=== PATIENT | male | born 1960 | race African-American/Black ===

== ENCOUNTER 2018-01-01 23:11 | Emergency (ER) | payer OTHER ==
[2018-01-01 23:17] VITALS: BP 130/83
== END 2018-01-02 00:27 | disposition home or self-care (01) ==
LOC: ED 23:34
DX: Z00.00 Encounter for general adult medical examination without abnormal findings (principal)
CPT/HCPCS: 36415; 86705; 86706; 86803; 87340; 87806; 99284; G0475

== ENCOUNTER 2020-06-06 16:36 | Emergency (ER) | payer MEDICAID ==
[~2020-06-06] VITALS: Ht 177.8 cm; Wt 66.0 kg
[2020-06-06 16:47] VITALS: BP 118/82
--- NOTE | 2020-06-06 16:51 | NUR ---
PT IN FROM [facility] FOR BEING PLACED ON HOLD, NOT BEING ABLE TO CARE FOR SELF. WAS ACTING IMPULSIVE IN [facility], SCREAMING, DELUSIONAL. PT WAS IN [facility] FOR 2 MONTHS. PT SPEECH PRESSURED, WILL RANDOMLY TALKING IN HUNGARIAN. PT COOPERATIVE AT THIS TIME. IN GOWN, [facility] CUFFS REMOVED. PHOTOGRAPHIC EQUIPMENT TECHNICIAN AT BEDSIDE.
[2020-06-06 17:16] LABS: BASOPHILS % (AUTO) 0 % (0-1); EOSINOPHILS # (AUTO) 0.02 x10^3/uL (0-0.4); EOSINOPHILS % (AUTO) 0 % (1-7); LYMPHOCYTES # (AUTO) 0.82 x10^3/uL (1-3.4); LYMPHOCYTES % (AUTO) 14 % (22-44); MD NO; MEAN CORPUSCULAR HEMOGLOBIN 30.2 pg (27.5-34.5); MEAN CORPUSCULAR HGB CONC 32.4 g/dL (33.2-36.2); MEAN CORPUSCULAR VOLUME 93.4 fL (81-97); MEAN PLATELET VOLUME 7.1 fL (7.4-10.4); MONOCYTES # (AUTO) 0.27 x10^3/uL (0.2-0.8); MONOCYTES % (AUTO) 4 % (2-9); NEUTROPHILS # (AUTO) 4.99 x10^3/uL (1.8-6.8); NEUTROPHILS % (AUTO) 82 % (42-75); PLATELET COUNT 293 x10^3/uL (130-400); RED BLOOD COUNT 3.67 x10^6/uL (4.38-5.82)
[2020-06-06 17:24] LABS: ALANINE AMINOTRANSFERASE 21 U/L (12-78); ALBUMIN 3.3 g/dL (3.4-5.0); ANION GAP 7 mmol/L (5-15); CALCIUM 8.7 mg/dL (8.5-10.1); CHLORIDE 106 mmol/L (98-107)
[2020-06-06 17:27] LABS: ALKALINE PHOSPHATASE 78 U/L (45-117); BILIRUBIN,TOTAL 0.7 mg/dL (0.2-1.0); CREATININE 1.04 mg/dL (0.7-1.3); TOTAL PROTEIN 6.8 g/dL (6.4-8.2)
--- NOTE | 2020-06-06 17:30 | NUR ---
PT GIVEN MEAL TRAY.
[2020-06-06 17:35] LABS: SALICYLATE LEVEL < 1.7 mg/dL (2.8-20.0)
--- NOTE | 2020-06-06 18:25 | NUR ---
Patient/Caregiver given discharge instructions and they have confirmed that they understand the instructions. Patient ambulatory with steady gait.
--- NOTE | 2020-06-06 18:25 | NUR ---
ALL BELONGINGS RETURNED TO PT
== END 2020-06-06 18:27 ==
LOC: ED 18:21
DX: M25.531 Pain in right wrist (principal); M25.521 Pain in right elbow
CPT/HCPCS: 36415; 80053; 80307; 85025; 99283

== ENCOUNTER 2020-06-06 22:15 | Emergency (ER) | payer MEDICAID | END 2020-06-06 22:25 | LOC: ED 22:19 | DX: M79.606 Pain in leg, unspecified (principal); Z53.21 Procedure and treatment not carried out due to patient leaving prior to being seen by health care provider ==

== ENCOUNTER 2020-06-10 22:30 | Emergency (ER) | payer MEDICAID ==
[~2020-06-10] VITALS: Ht 180.3 cm; Wt 52.0 kg
--- NOTE | 2020-06-10 23:39 | NUR ---
PATIENT RESTING IN BED, NO S/S OF DISTRESS PT TALKING ABOUT HISTORY AND LAUGHING. PLACED ON CONTINUOUS PULSE OX.
[2020-06-11 00:10] VITALS: BP 102/65
--- NOTE | 2020-06-11 00:20 | NUR ---
LEGAL HOLD DE-CERTIFIED BY ER MD. PATIENT TAKEN TO RESTROOM PRIOR TO DISCHARGE, PATIENT STATES NO ISSUES AT THIS TIME
== END 2020-06-11 00:32 | disposition home or self-care (01) ==
LOC: ED 22:40
DX: R63.3 Feeding difficulties (principal); Z72.9 Problem related to lifestyle, unspecified; F17.210 Nicotine dependence, cigarettes, uncomplicated
CPT/HCPCS: 99283; 99406

== ENCOUNTER 2020-06-12 20:01 | Inpatient (IN) | payer MEDICAID ==
[~2020-06-12] VITALS: Ht 177.8 cm; Wt 54.9 kg
[2020-06-12] MEDS ORDERED: IBUPROFEN 600 MG TABLET ONE (20:29)
[2020-06-12] MEDS ORDERED: ACETAMINOPHEN 325 MG TABLET ONE (20:29)
[2020-06-12] MEDS ORDERED: IBUPROFEN 200 MG TABLET PO ONE (20:30)
[2020-06-12] MEDS ORDERED: ACETAMINOPHEN 325 MG TABLET PO ONE (20:30)
[2020-06-12 20:58] LABS: MEAN CORPUSCULAR HEMOGLOBIN 30.2 pg (27.5-34.5); MEAN CORPUSCULAR HGB CONC 32.5 g/dL (33.2-36.2); MEAN CORPUSCULAR VOLUME 93.2 fL (81-97); PLATELET COUNT 254 x10^3/uL (130-400); RED BLOOD COUNT 2.59 x10^6/uL (4.38-5.82); RED CELL DISTRIBUTION WIDTH 14.4 % (9.4-14.8)
[2020-06-12 21:01] LABS: ALANINE AMINOTRANSFERASE 32 U/L (12-78); ALBUMIN 2.9 g/dL (3.4-5.0); ANION GAP 4 mmol/L (5-15); CALCIUM 8.5 mg/dL (8.5-10.1); CHLORIDE 114 mmol/L (98-107); CREATININE 0.73 mg/dL (0.7-1.3)
[2020-06-12 21:03] LABS: ALKALINE PHOSPHATASE 57 U/L (45-117); BILIRUBIN,TOTAL 0.5 mg/dL (0.2-1.0); TOTAL PROTEIN 5.7 g/dL (6.4-8.2)
[2020-06-12 21:38] LABS: MD YES
[2020-06-12 21:39] LABS: ANISOCYTOSIS 1+; LYMPH#(MANUAL) 2.02 x10^3/uL (1-3.4); LYMPHS% (MANUAL) 47 % (22-44); MONOS#(MANUAL) 0.09 x10^3/uL (0.3-2.7); MONOS% (MANUAL) 2 % (2-9); SEG#(MANUAL) 2.19 x10^3/uL (1.8-6.8); SEGS% (MANUAL) 51 % (42-75)
[2020-06-12 21:40] LABS: HYPOCHROMIA 1+; OVALOCYTES 1+; POLYCHROMASIA 1+
--- NOTE | 2020-06-12 21:40 | NUR ---
PT RESTING IN BED, PT ON MONITOR, PT DENIED ANY NEEDS AT THIS TIME, DAIRY CATTLE FARMER WILL CONTINUE TO MONITOR PT.
[2020-06-12 21:42] LABS: <PLATELET ESTIMATE> ADEQUATE; <PLT MORPHOLOGY> NORMAL PLT MORPH
--- NOTE | 2020-06-12 22:43 | NUR ---
PT RESTING IN BED, PT ON MONITOR, PT DENIED ANY NEEDS AT THIS TIME, PACKAGE LINER WILL CONTINUE TO MONITOR PT.
[2020-06-12] MEDS ORDERED: PANTOPRAZOLE 40 MG IV IVPush STA (22:49)
[2020-06-12] MEDS ORDERED: PANTOPRAZOLE 40 MG IV ONE (23:09)
[2020-06-12] MEDS: PANTOPRAZOLE 80 MG in SODIUM CHLORIDE 0.9% 100 ML IV SCH (23:32)
--- NOTE | 2020-06-12 23:49 | NUR ---
PT DENIED HOME MEDICATIONS
--- NOTE | 2020-06-12 23:50 | NUR ---
MEDICATION REQUESTED FROM [employer] "THEY ARE WORKING ON IT AND WILL SEND IT"
--- NOTE | 2020-06-13 00:31 | NUR ---
BANANA BAG AND PROTONIX BAG ARRIVED DURING PT TRANSFER TO FLOOR, MEDS SENT TO FLOOR WITH PT
[2020-06-13 01:21] VITALS: BP 100/58
[2020-06-13] MEDS: POTASSIUM CHLORIDE 20 MEQ, MAGNESIUM SULFATE 1 GM, FOLIC ACID 1 MG, THIAMINE 200 MG, MV... IV SCH (01:48)
[2020-06-13 02:47] VITALS: BP 100/58
[2020-06-13 07:27] VITALS: BP 110/63
[2020-06-13] MEDS: PANTOPRAZOLE 80 MG in SODIUM CHLORIDE 0.9% 100 ML IV SCH ×2 (11:58→22:50)
[2020-06-13 12:32] LABS: IRON LEVEL 44 mcg/dL (65-175)
[2020-06-13 12:50] VITALS: BP 136/75
[2020-06-13 12:59] LABS: % IRON SATURATION 24 % (20-55); TOTAL IRON BINDING CAPACITY 181 mcg/dL (250-450)
[2020-06-13] MEDS ORDERED: GOLYTELY 4,000ML ORAL.SOL PO ONE (17:00)
[2020-06-13 18:42] VITALS: BP 104/69
[2020-06-14] MEDS: POTASSIUM CHLORIDE 20 MEQ, MAGNESIUM SULFATE 1 GM, FOLIC ACID 1 MG, THIAMINE 200 MG, MV... IV SCH (00:20)
[2020-06-14 01:28] VITALS: BP 106/67
[2020-06-14 06:07] LABS: CHLORIDE 109 mmol/L (98-107)
[2020-06-14 06:14] LABS: MEAN CORPUSCULAR HEMOGLOBIN 30.4 pg (27.5-34.5); MEAN CORPUSCULAR HGB CONC 32.5 g/dL (33.2-36.2); MEAN CORPUSCULAR VOLUME 93.4 fL (81-97); MEAN PLATELET VOLUME 7.2 fL (7.4-10.4); PLATELET COUNT 226 x10^3/uL (130-400); RED BLOOD COUNT 2.15 x10^6/uL (4.38-5.82); RED CELL DISTRIBUTION WIDTH 14.9 % (9.4-14.8)
[2020-06-14 06:15] LABS: ALANINE AMINOTRANSFERASE 23 U/L (12-78); ALBUMIN 2.6 g/dL (3.4-5.0); ALKALINE PHOSPHATASE 49 U/L (45-117); ANION GAP 6 mmol/L (5-15); BILIRUBIN,TOTAL 0.8 mg/dL (0.2-1.0); CALCIUM 8.2 mg/dL (8.5-10.1); TOTAL PROTEIN 5.2 g/dL (6.4-8.2)
[2020-06-14 06:36] VITALS: BP 106/55
[2020-06-14 07:01] LABS: BASOPHILS # (AUTO) 0.02 x10^3/uL (0-0.1); BASOPHILS % (AUTO) 1 % (0-1); EOSINOPHILS # (AUTO) 0.08 x10^3/uL (0-0.4); EOSINOPHILS % (AUTO) 2 % (1-7); LYMPHOCYTES # (AUTO) 1.31 x10^3/uL (1-3.4); LYMPHOCYTES % (AUTO) 38 % (22-44); MD SCAN; MONOCYTES # (AUTO) 0.24 x10^3/uL (0.2-0.8); MONOCYTES % (AUTO) 7 % (2-9); NEUTROPHILS # (AUTO) 1.76 x10^3/uL (1.8-6.8); NEUTROPHILS % (AUTO) 52 % (42-75)
[2020-06-14] MEDS: PANTOPRAZOLE 80 MG in SODIUM CHLORIDE 0.9% 100 ML IV SCH ×2 (08:23→18:12)
[2020-06-14] MEDS ORDERED: GOLYTELY 4,000ML ORAL.SOL PO ONE (09:00)
[2020-06-14] MEDS ORDERED: PROPOFOL 50 ML ONE (11:48)
[2020-06-14 18:51] VITALS: BP 102/61
[2020-06-15 00:33] VITALS: BP 110/71
[2020-06-15] MEDS: POTASSIUM CHLORIDE 20 MEQ, MAGNESIUM SULFATE 1 GM, FOLIC ACID 1 MG, THIAMINE 200 MG, MV... IV SCH (00:56)
[2020-06-15] MEDS: PANTOPRAZOLE 80 MG in SODIUM CHLORIDE 0.9% 100 ML IV SCH ×2 (05:29→14:00)
[2020-06-15 08:18] VITALS: BP 127/72
[2020-06-15] MEDS ORDERED: ACETAMINOPHEN 325 MG TABLET PO PRN (11:30)
[2020-06-15] MEDS ORDERED: ACETAMINOPHEN 325 MG TABLET ONE (11:30)
[2020-06-15 12:36] VITALS: BP 104/65
[2020-06-15 19:06] VITALS: BP 100/52
[2020-06-16] MEDS: PANTOPRAZOLE 80 MG in SODIUM CHLORIDE 0.9% 100 ML IV SCH ×3 (00:21→20:00)
[2020-06-16 00:50] VITALS: BP 101/67
[2020-06-16 07:44] VITALS: BP 93/60
[2020-06-16 12:32] VITALS: BP 92/54
[2020-06-16] MEDS: SODIUM CHLORIDE 0.9% 1,000 ML IV SCH ×2 (13:30→21:30)
[2020-06-16 19:14] VITALS: BP 94/58
[2020-06-17 01:50] VITALS: BP 106/65
[2020-06-17] MEDS: SODIUM CHLORIDE 0.9% 1,000 ML IV SCH ×3 (05:30→20:17)
[2020-06-17] MEDS: PANTOPRAZOLE 80 MG in SODIUM CHLORIDE 0.9% 100 ML IV SCH ×2 (06:00→16:00)
[2020-06-17 06:47] VITALS: BP 120/65
[2020-06-17 12:17] VITALS: BP 91/58
[2020-06-17 19:30] VITALS: BP 94/49
[2020-06-18 00:13] VITALS: BP 93/50
[2020-06-18] MEDS: PANTOPRAZOLE 80 MG in SODIUM CHLORIDE 0.9% 100 ML IV SCH ×3 (02:00→22:00)
[2020-06-18] MEDS: SODIUM CHLORIDE 0.9% 1,000 ML IV SCH ×3 (03:55→21:30)
[2020-06-18 07:23] VITALS: BP 103/51
[2020-06-18 12:08] VITALS: BP 104/57
[2020-06-18 18:50] VITALS: BP 96/43
[2020-06-19 00:28] VITALS: BP 100/58
[2020-06-19] MEDS: SODIUM CHLORIDE 0.9% 1,000 ML IV SCH (05:30)
[2020-06-19] MEDS: PANTOPRAZOLE 80 MG in SODIUM CHLORIDE 0.9% 100 ML IV SCH (08:00)
[2020-06-19] MEDS ORDERED: HALOPERIDOL 5 MG/ML ONE (10:26)
[2020-06-19] MEDS ORDERED: HALOPERIDOL 5 MG/ML IM PRN (10:30)
[2020-06-19] MEDS ORDERED: HALOPERIDOL 5 MG/ML IM ONE (12:00)
[2020-06-19] MEDS ORDERED: DIPHENHYDRAMINE 50 MG/ML, 1ML IM PRN (12:00)
== END 2020-06-19 13:05 | DRG 377 ==
LOC: ED 21:11 → EDIP 23:48 → 4WST 06-13 01:04
PROVIDERS: ADMIT Family Medicine; ATTEND Internal Medicine
DX: K92.2 Gastrointestinal hemorrhage, unspecified (principal); E43 Unspecified severe protein-calorie malnutrition; D62 Acute posthemorrhagic anemia; Z68.1 Body mass index [BMI] 19.9 or less, adult; F17.200 Nicotine dependence, unspecified, uncomplicated; F31.9 Bipolar disorder, unspecified; M53.3 Sacrococcygeal disorders, not elsewhere classified; Z53.20 Procedure and treatment not carried out because of patient's decision for unspecified reasons; I95.9 Hypotension, unspecified; Z20.828 Contact with and (suspected) exposure to other viral communicable diseases; Z53.29 Procedure and treatment not carried out because of patient's decision for other reasons; Z91.14 Patient's other noncompliance with medication regimen
CPT/HCPCS: 36415; 72190; 73080; 96374; 99285; J7121; 80053; 82607; 82728; 83540; 83550; 85014; 85018; 85025; 85347; 85384; 85576; 86850; 86900; 86923; 87635; G0378; J2704; J3411; J3475; J3480; C9113; J1630

== ENCOUNTER 2020-07-15 16:42 | Emergency (ER) | payer MEDICAID ==
[~2020-07-15] VITALS: Ht 177.8 cm; Wt 55.0 kg
--- NOTE | 2020-07-15 17:14 | NUR ---
BIB LAW ENFORCEMENT. LEGAL HOLD FROM ALF D/T PSYCH. DENIES SI/HI. DELUSIONS, HALLCINATIONS, REFUSED TO TAKE MEDS AT ALF. PT'S AOX4. RESPS EVEN AND UNLABORED. 2 POINTS RESTRAINTS APPLIED BY SECURITY AT THIS TIME. BELONGINGS PUT INTO ONE BAG AND PUT INTO THE LOCKER. SITTER OUTSIDE. ROOM SECURE.
--- NOTE | 2020-07-15 17:29 | NUR ---
pt refused to provide urine sample at this time.
[2020-07-15] MEDS ORDERED: ZIPRASIDONE 20 MG INJ IM ONE ×5 (17:30→22:30)
[2020-07-15 17:50] LABS: CHLORIDE 107 mmol/L (98-107)
[2020-07-15 17:54] LABS: BASOPHILS % (AUTO) 0 % (0-1); EOSINOPHILS % (AUTO) 1 % (1-7); LYMPHOCYTES % (AUTO) 24 % (22-44); MEAN CORPUSCULAR HEMOGLOBIN 28.5 pg (27.5-34.5); MEAN CORPUSCULAR HGB CONC 31.1 g/dL (33.2-36.2); MEAN PLATELET VOLUME 6.5 fL (7.4-10.4); MONOCYTES % (AUTO) 9 % (2-9); NEUTROPHILS % (AUTO) 66 % (42-75); PLATELET COUNT 371 x10^3/uL (130-400); RED BLOOD COUNT 2.76 x10^6/uL (4.38-5.82); RED CELL DISTRIBUTION WIDTH 18.6 % (9.4-14.8)
[2020-07-15 17:57] LABS: ALANINE AMINOTRANSFERASE 23 U/L (12-78); ALKALINE PHOSPHATASE 85 U/L (45-117); ANION GAP 7 mmol/L (5-15); BILIRUBIN,TOTAL 0.5 mg/dL (0.2-1.0); CALCIUM 8.6 mg/dL (8.5-10.1); CREATININE 0.79 mg/dL (0.7-1.3); TOTAL PROTEIN 6.7 g/dL (6.4-8.2)
[2020-07-15 17:58] LABS: SALICYLATE LEVEL < 1.7 mg/dL (2.8-20.0)
--- NOTE | 2020-07-15 18:28 | NUR ---
diet tray provided at this time.
--- NOTE | 2020-07-15 19:12 | NUR ---
Luís holliday in [facility] - 07/15/20 at 1913 by MARYSE report received from michael clarke
--- NOTE | 2020-07-15 19:13 | NUR ---
report given to michael hearn.
--- NOTE | 2020-07-15 19:13 | NUR ---
REPORT FROM ARGENIS GARRETT. PT IN 2 POINT HARD RESTRAINTS AT THIS TIME WHEN THIS RN ASSUMED CARE. PT MAKING AGGRESSIVE GESTURES TO THIS RN.
[2020-07-15 19:40] LABS: MD MORPH REVIEW ONLY
[2020-07-15 19:49] LABS: HYPOCHROMIA 1+; POLYCHROMASIA 1+
[2020-07-15 19:50] LABS: OVALOCYTES 1+
[2020-07-15 19:51] LABS: <PLATELET ESTIMATE> ADEQUATE; <PLT MORPHOLOGY> NORMAL PLT MORPH; TARGET CELLS 1+; TEAR DROPS 1+
--- NOTE | 2020-07-15 20:24 | NUR ---
PT REMAINS IN 2 POINT RESTRAINTS.
--- NOTE | 2020-07-15 20:24 | NUR ---
PT YELLING ANYTIME THIS RN TRIES TO CONVERSE WITH PT "F YOU, B. YOU MAGGIE PAUL B"
[2020-07-15 20:37] LABS: AMPHETAMINE SCREEN, URINE Negative (Negative); BARBITURATE SCREEN, URINE Negative (Negative); BENZODIAZEPINE SCREEN, URINE Negative (Negative); CANNABINOID SCREEN, URINE Negative (Negative); COCAINE SCREEN, URINE Negative (Negative); METHADONE SCREEN, URINE Negative (Negative); OPIATE SCREEN, URINE Negative (Negative)
--- NOTE | 2020-07-15 22:00 | NUR ---
PT REFUSED TEMPERATURE CHECK, ALL OTHER VITALS OBTAINED AND ENTERED.
[2020-07-15] MEDS ORDERED: LORazepam 2 MG/ML, 1ML ONE (22:18)
[2020-07-15] MEDS ORDERED: LORazepam 2 MG/ML, 1ML IM ONE (22:30)
--- NOTE | 2020-07-15 23:15 | NUR ---
LATE ENTRY: RESTRAINTS D/C'D AT THIS TIME. BETWEEN 2019 AND TIME OF THIS NOTE PT REMAINED EXTREMELY AGITATED. PT WAS YELLING AT PASSERS BY, CUSSING AND WOULD NOT LISTEN WHEN THIS RN OR OTHERS TRIED TO TALK WITH HIM OR EDUCATE HIM. RESTRAINTS D/C'D AT EARLIEST TIME POSSIBLE.
--- NOTE | 2020-07-15 23:46 | NUR ---
Break RN: patient sleeping. respiration unlabored.
--- NOTE | 2020-07-16 01:03 | NUR ---
PT HAS REMAINED SLEEPING SINCE TIME OF RESTRAINTS D/C'D.
--- NOTE | 2020-07-16 03:59 | NUR ---
REPORT TO ARGENIS GONZALEZ. LISA TO ASSUME FULL CARE OF PT AT THIS TIME. PT IN BED, NADN. PT IN VIEW OF THE SITTER.
--- NOTE | 2020-07-16 05:09 | NUR ---
PT RESTING IN BED, PT ROOM SI SECURE WITH SITTER AT PT DOOR. PT HAS NO WANTS OR NEEDS AT THIS TIME, RN WILL CONINUE TO MONITOR PT. PT MEDICATED PER EMAR
--- NOTE | 2020-07-16 07:00 | NUR ---
REPORT RECEIVED FROM ARGENIS GONZALEZ. ASSUMING CARE OF PATIENT. PT IS SLEEPING AT THIS TIME AND REMAINS UNDER CONSTANT SUPERVISION OF VAELRIY AND REMAINS SAFE.
--- NOTE | 2020-07-16 09:33 | NUR ---
RE-ASSUMED CARE OF PATIENT FROM ARGENIS DENNIS. HOSPITAL BED ORDERED FOR COMFORT.
[2020-07-16] MEDS ORDERED: AMLO10TA8 PO (10:12)
[2020-07-16] MEDS ORDERED: ASPI-515 PO (10:13)
[2020-07-16] MEDS ORDERED: LOSA100T14 PO (10:13)
--- NOTE | 2020-07-16 10:28 | NUR ---
PUT PATIENT HOSPITAL BED FOR COMFORT. PT WATCHING TV WITH NO COMPLAINTS. PT APOLOGETIC FOR HIS POOR BEHAVIOR YESTERDAY AND REQUESTING THAT AN EMAIL BE SENT TO ALL STAFF INVOLVED IN HIS CARE YESTERDAY LETTING THEM KNOW THAT HE IS SORRY. SNACK PROVIDED.
[2020-07-16 11:12] VITALS: BP 117/70
--- NOTE | 2020-07-16 11:15 | NUR ---
VS UPDATED. PT HAS NO NEEDS AT THIS TIME. PT REMAINS UNDER CONSTANT SUPERVISION OF SITTER AND REMAINS SAFE.
--- NOTE | 2020-07-16 16:23 | NUR ---
SBAR TELEPHONE HAND-OFF REPORT GIVEN TO RN PAPA IN U.
== END 2020-07-16 16:54 ==
LOC: ED 22:04
DX: R45.851 Suicidal ideations (principal)
CPT/HCPCS: 36415; 80053; 80307; 85025; 96372; 99284; J2060; J3486

== ENCOUNTER 2020-07-16 13:26 | Inpatient (IN) | payer MEDICAID ==
[~2020-07-16] VITALS: Ht 180.3 cm; Wt 53.8 kg
[~2020-07-16 13:26] MED LIST: AMLO10TA8 PO; ASPI-515 PO; LOSA100T14 PO
[2020-07-16] MEDS ORDERED: ONDANSETRON ODT 4 MG PO PRN (15:30)
[2020-07-16] MEDS ORDERED: BISACODYL 10 MG SUPP PR PRN (15:30)
[2020-07-16] MEDS ORDERED: POLYETHYLENE GLYCOL 17 GM PACKET PO PRN (15:30)
[2020-07-16] MEDS ORDERED: ACETAMINOPHEN 325 MG TABLET PO PRN (15:30)
[2020-07-16] MEDS ORDERED: DOCUSATE 100 MG CAPSULE PO PRN (15:30)
[2020-07-16] MEDS ORDERED: QUETIAPINE 25MG TABLET PO PRN (15:30)
[2020-07-16 20:10] VITALS: BP 106/68
[2020-07-17] MEDS ORDERED: QUETIAPINE MC SCH (01:30)
[2020-07-17 05:57] LABS: CHOL/HDL RATIO 1.8; LDL/HDL RATIO 0.8 (0.5-3.0)
[2020-07-17 07:34] VITALS: BP 126/60
[2020-07-17 20:10] VITALS: BP 133/74
[2020-07-17] MEDS: OLANZAPINE 5 MG TABLET PO SCH (21:41)
[2020-07-18 07:32] VITALS: BP 122/68
[2020-07-18] MEDS: OLANZAPINE 5 MG TABLET PO SCH ×2 (07:49→20:13)
[2020-07-18 08:42] LABS: IRON LEVEL 19 mcg/dL (65-175); TOTAL IRON BINDING CAPACITY 271 mcg/dL (250-450)
[2020-07-18 08:43] LABS: % IRON SATURATION 7 % (20-55)
[2020-07-18 19:15] VITALS: BP 117/73
[2020-07-19 07:14] VITALS: BP 114/74
[2020-07-19] MEDS: OLANZAPINE 5 MG TABLET PO SCH ×2 (09:50→21:00)
[2020-07-19 18:28] VITALS: BP 119/79
[2020-07-20 07:11] VITALS: BP 122/76
[2020-07-20] MEDS: OLANZAPINE 5 MG TABLET PO SCH (09:00)
== END 2020-07-20 09:15 | disposition home or self-care (01) | DRG 885 ==
LOC: 3E 16:45
PROVIDERS: ADMIT Psychiatry & Neurology Psychosomatic Medicine; ATTEND Psychiatry & Neurology Psychosomatic Medicine
DX: F20.0 Paranoid schizophrenia (principal); F60.0 Paranoid personality disorder; I10 Essential (primary) hypertension; F17.210 Nicotine dependence, cigarettes, uncomplicated; Z79.899 Other long term (current) drug therapy; Z79.891 Long term (current) use of opiate analgesic; Z91.19 Patient's noncompliance with other medical treatment and regimen; Z79.82 Long term (current) use of aspirin
CPT/HCPCS: 36415; 80061; 83036; 83540; 83550; 93005

== ENCOUNTER 2020-07-21 00:53 | Emergency (ER) | payer MEDICAID ==
[~2020-07-21] VITALS: Ht 180.3 cm; Wt 56.0 kg
[2020-07-21 00:54] VITALS: BP 127/68
--- NOTE | 2020-07-21 01:21 | NUR ---
assessment made. chart up for MD to see.
--- NOTE | 2020-07-21 01:35 | NUR ---
technical staff engineer at bedside.
--- NOTE | 2020-07-21 02:53 | NUR ---
Patient discharge instructions given. Patient verbally aggressive stating he does not have a place to go and "I am not leaving." Security called to escort patient. Patient continued to be aggressive toward security.
== END 2020-07-21 02:57 ==
LOC: ED 02:51
DX: R05 Cough (principal); R09.81 Nasal congestion; R07.9 Chest pain, unspecified; R51.9 Headache, unspecified; Z72.9 Problem related to lifestyle, unspecified
CPT/HCPCS: 71045; 93005; 99283

== ENCOUNTER 2020-07-21 19:32 | Emergency (ER) | payer MEDICAID ==
[2020-07-21 19:36] VITALS: BP 112/71
--- NOTE | 2020-07-21 20:19 | NUR ---
PT DC'D. PT REFUSES TO LEAVE RM. SECURITY CALLED. SECURITY NOTIFIED [facility].
== END 2020-07-21 20:26 | disposition home or self-care (01) ==
LOC: ED 20:00
DX: F20.0 Paranoid schizophrenia (principal); I10 Essential (primary) hypertension
CPT/HCPCS: 99281

== ENCOUNTER 2020-08-20 12:09 | Inpatient (IN) | payer OTHER, MEDICAID ==
[~2020-08-20] VITALS: Ht 172.7 cm; Wt 70.0 kg
[~2020-08-20 12:09] MED LIST changes: +AMLO-211 PO; -AMLO10TA8 PO
[2020-08-20] MEDS ORDERED: ONDANSETRON 2MG/ML, 2ML IVPush ONE (12:30)
[2020-08-20] MEDS ORDERED: SODIUM CHLORIDE 0.9% 1,000ML IVBOLUS ONE ×2 (12:30→15:00)
[2020-08-20] MEDS ORDERED: SODIUM CHLORIDE FLUSH 10ML SYR IVF ONE (12:30)
[2020-08-20] MEDS ORDERED: ONDANSETRON 2MG/ML, 2ML ONE (12:55)
[2020-08-20] MEDS ORDERED: PLEASE ENTER HEIGHT AND WEIGHT MC SCH (13:00)
--- NOTE | 2020-08-20 13:36 | NUR ---
PT ASSISTED SCRUBS COVERED IN VOMIT. PT STS +NAUSEA AND DOES NOT WANT TO EAT BC HE DOES NOT LIKE ASSISTED FOOD. STRANGE AFFECT, STARES/WHIMPERS AT NOTHING. IN CUFFS BY OLIVIA. BLOOD SENT, IVF PER MAR. FALL PRECS.
[2020-08-20 13:42] LABS: ALANINE AMINOTRANSFERASE 18 U/L (12-78); ALBUMIN 2.7 g/dL (3.4-5.0); ANION GAP 4 mmol/L (5-15); CALCIUM 8.2 mg/dL (8.5-10.1); CHLORIDE 106 mmol/L (98-107)
[2020-08-20 13:45] LABS: ALKALINE PHOSPHATASE 65 U/L (45-117); BILIRUBIN,TOTAL 0.6 mg/dL (0.2-1.0); CREATININE 0.85 mg/dL (0.7-1.3); TOTAL PROTEIN 6.3 g/dL (6.4-8.2)
--- NOTE | 2020-08-20 14:01 | NUR ---
REPORT TO LI MORE.
--- NOTE | 2020-08-20 14:04 | NUR ---
BEDSIDE REPORT FROM ARGENIS NAVARRETE. PT REPOSITIONED IN BED. EDUCATED ON THE NEED FOR UA, PT STATED "F YOU, I CAN'T PEE." PT GIVEN URINAL AND ASKED TO TRY, PT STATED HE WAS DEHYDRATED. PT REMINDED THAT HE WAS GIVEN A LITER OF FLUID. LAW ENFORCEMENT AT BEDSIDE.
--- NOTE | 2020-08-20 14:55 | NUR ---
PT REFUSING TO ANSWER QUESTIONS. ERP BACK TO BEDSIDE. STILL AWAITING URINE SAMPLE.
--- NOTE | 2020-08-20 15:32 | NUR ---
PT PLACED ON DAY CARE WORKER. PT ASKED TO "LIFT HIS HEAD" SO STICKERS COULD BE PLACED. PT STATES "THAT'S MY CHIN WOMAN, GET IT RIGHT." PT REFUSING TO ANSWER ALL OTHER QUESTIONS. STILL WAITING FOR URINE SAMPLE.
[2020-08-20] MEDS ORDERED: OMNIPAQUE 350 MG/ML, 100ML BOTTLE ONE (16:06)
--- NOTE | 2020-08-20 16:18 | NUR ---
PT HAS BEEN TO AND FROM IMAGING.
--- NOTE | 2020-08-20 16:40 | NUR ---
LAB CALLED TO INQUIRE ABOUT PENDING CBC. PER LAB, H&H CAME BACK LOW (PRIOR TO THIS RN ASSUMING CARE) AND IT WAS DETERMINED THAT A REDRAW WAS TO BE DONE. LAB CALLED TO FOLLOW UP WITH THIS REDRAW. PT LAYING IN BED, CRYING OUT, BUT REFUSES TO ANSWER QUESTIONS.
--- NOTE | 2020-08-20 16:43 | NUR ---
PT ASKED TO LAY ON HIS BACK FOR ACCURATE BP READING. PT STATES "YOU'RE A BITCH." PT EDUCATED NOT TO TALK TO RN LIKE THIS.
[2020-08-20 16:44] VITALS: BP 100/67
--- NOTE | 2020-08-20 16:53 | NUR ---
LAB BACK IN ROOM FOR CBC REDRAW.
[2020-08-20 16:58] LABS: MEAN CORPUSCULAR HEMOGLOBIN 22.1 pg (27.5-34.5); MEAN PLATELET VOLUME 6.6 fL (7.4-10.4); PLATELET COUNT 190 x10^3/uL (130-400); RED BLOOD COUNT 1.32 x10^6/uL (4.38-5.82); RED CELL DISTRIBUTION WIDTH 22.6 % (9.4-14.8)
[2020-08-20 17:03] LABS: MEAN CORPUSCULAR HGB CONC 29.7 g/dL (33.2-36.2)
[2020-08-20 17:05] LABS: MD YES
--- NOTE | 2020-08-20 17:15 | NUR ---
ERP BACK TO BEDSIDE TO UPDATE PT ON POC. PT STATES "F YOU" AND IS CURRENTLY REFUSING ALL TREATMENT. AWAITING PSYCH CONSULT PER MD FRANCE.
[2020-08-20] MEDS ORDERED: PANTOPRAZOLE 80 MG in SODIUM CHLORIDE 0.9% 50 ML IV ONE (18:00)
[2020-08-20 18:30] LABS: BAND#(MANUAL) 0.11 x10^3/uL; BANDS%(MANUAL) 3 % (0-7); LYMPH#(MANUAL) 0.38 x10^3/uL (1-3.4); LYMPHS% (MANUAL) 10 % (22-44); MONOS#(MANUAL) 0.11 x10^3/uL (0.3-2.7); MONOS% (MANUAL) 3 % (2-9); SEG#(MANUAL) 3.19 x10^3/uL (1.8-6.8); SEGS% (MANUAL) 84 % (42-75)
[2020-08-20] MEDS ORDERED: PANTOPRAZOLE 80 MG in SODIUM CHLORIDE 0.9% 100 ML IV SCH ×2 (18:30)
[2020-08-20] MEDS ORDERED: ONDANSETRON 2MG/ML, 2ML IVPush PRN (18:30)
[2020-08-20 18:31] LABS: HYPOCHROMIA 2+; MICROCYTOSIS 2+
[2020-08-20 18:32] LABS: OVALOCYTES 1+; POLYCHROMASIA 1+; TEAR DROPS 1+
[2020-08-20 18:33] LABS: <PLATELET ESTIMATE> ADEQUATE; <PLT MORPHOLOGY> NORMAL PLT MORPH; TARGET CELLS 1+
[2020-08-20] MEDS ORDERED: HALOPERIDOL 5 MG/ML ONE (18:46)
[2020-08-20] MEDS ORDERED: HALOPERIDOL 5 MG/ML IM PRN (19:00)
--- NOTE | 2020-08-20 19:15 | NUR ---
ADMITTING MD AT BEDSIDE.
--- NOTE | 2020-08-20 19:40 | NUR ---
BREAK RN: ADMITTING MD NOT GOING TO CHANGE LAB ORDERS AT THIS TIME. PT TO CONTINUE TO GET PROTONIX AND IRON PER MD.
[2020-08-20] MEDS ORDERED: METRONIDAZOLE PMX 500MG/100ML 100 ML IV SCH (21:00)
[2020-08-20] MEDS ORDERED: CEFTRIAXONE PMX 1GM/50ML 50 ML IV SCH (21:00)
--- NOTE | 2020-08-20 21:09 | NUR ---
THIS RN ATTEMPTED TO CHANGE PATIENT OUT OF SOILD CLOTHING. PT REFUSED. "F YOU B I'M TRYING TO SLEEP, I'M TIRED OF DEALING WITH YOU MAGGIE Alvarado JAMES B"
[2020-08-20] MEDS ORDERED: OXYcodone 5 MG/5 ML ORAL.SOL UDC ONE (21:18)
--- NOTE | 2020-08-20 21:51 | NUR ---
PT EDUCATED ABOUT THE NEED FOR SECOND IV. PT SAID "F YOU B YOU'RE A WHORE." NO IV TO BE PLACED AT THIS TIME BECAUSE PT REFUSED.
--- NOTE | 2020-08-20 21:58 | NUR ---
PHARMACY CALLED TO ASK ABOUT COMPATIBILITY OF MEDS. ROCEPHIN AND PROTONIX ARE COMPATIBLE PER PHARMACISIT. FLAGYL IS NOT COMPATIBLE WITH PROTONIX. ROCEPHIN TO BE ADMINISTERED WITH PROTONIX, THEN PROTONIX DRIP TO BE STOPPED WHILE FLAGYL INFUSES.
[2020-08-20] MEDS ORDERED: CEFTRIAXONE PMX 1GM/50ML 50 ML ONE (22:31)
--- NOTE | 2020-08-20 22:47 | NUR ---
charge: this rn attempted to assist primary rn as pt is cussing "fucking bitch" to the primary rn and not compliant with medical txt. brought trinh to bs to help with interventions and pt still cussing "you kkk bitch". this rn attempted to explain pt cannot talk to staff and poc with pt since pt was to receive care. pt continued to cuss at md and all staff. security called.
--- NOTE | 2020-08-21 | NUR ---
LATE ENTRY SUMMARY NOTE: PT'S RESTORATIONISM PREFERENCES KEEP HIM FROM ACCEPTING A BLOOD TRANSFUSION. PT ADIMITLY REFUSED BLOOD TRANSFUSION FROM ERP VALERIE PATEL MD AND ADMITTING MD WHITEHEAD. PT EDUCATED ABOUT THE RISKS OF DECLINING. THIS RN BACK TO BEDSIDE TO ATTEMPT TO ADMINISTER ABX. PT YELLING AT THIS RN "FUCK YOU BITCH, YOU LITTLE WHORE" WHENEVER RN ATTEMPTS TO SPEAK OR PREFORM AN INTERVENTION. FIRE CAPTAIN, SUSAN, RN MADE AWARE AND CAME TO BEDSIDE. SUSAN ATTEMPTED TO EDUCATE PT THAT THIS IS NOT APPROPRIATE BEHAVIOR FOR THE PROFESSIONAL WORKING RELATIONSHIP BETWEEN PROVIDERS AND PATIENT. PT RESPONDED BY YELLING "FUCK YOU, YOU MAGGIE PAUL, DIANE ALMENDAREZ." WAQAR TO BEDSIDE TO ASK PT IF HE WANTED TO LEAVE AMA OR STAY IN THE HOSPITAL FOR NECESSARY TREATMENT AND ACT APPROPRIATELY. PT STATED "FUCK YOU THEN, I DON'T WANT ANY OF THIS." SECURITY CALLED. PT WHEELED TO D/C AND PROVIDED WITH TAXI VOUCHER FOR SAFE D/C.
[2020-08-21] MEDS ORDERED: IRON SUCROSE COMPLEX 100MG/5ML IV SCH (09:00)
[2020-08-21] MEDS ORDERED: ACETAMINOPHEN 325 MG TABLET ONE (13:29)
== END 2020-08-21 12:00 | DRG 812 ==
LOC: ED 16:54 → EDIP 18:54
PROVIDERS: ADMIT Family Medicine; ATTEND Family Medicine
DX: D64.9 Anemia, unspecified (principal); E46 Unspecified protein-calorie malnutrition; Z68.23 Body mass index [BMI] 23.0-23.9, adult; F20.9 Schizophrenia, unspecified; F31.9 Bipolar disorder, unspecified; I10 Essential (primary) hypertension; Z59.0 Homelessness
CPT/HCPCS: 36415; 70450; 74177; 80053; 80164; 83690; 85025; J2405; Q9967; C9113; J1630; J7030

== ENCOUNTER 2020-08-22 22:04 | Inpatient (IN) | payer MEDICAID, OTHER ==
[~2020-08-22] VITALS: Ht 180.3 cm; Wt 97.5 kg
--- NOTE | 2020-08-22 23:29 | NUR ---
CERTIFIED VETERINARY TECHNICIAN: PT. TO ROOM FROM LOBBY AT THIS TIME.
--- NOTE | 2020-08-22 23:43 | NUR ---
Patient brought to room via w/c. Patient asked what he would like medical staff to do for him, since he is refusing all blood work at this time or any blood products. Provider at bedside. Patient agreed to be admitted for iron infusion at this time.
[2020-08-22] MEDS ORDERED: IRON SUCROSE COMPLEX 100MG/5ML IV ONE (23:45)
[2020-08-23] MEDS ORDERED: PANTOPRAZOLE 80 MG in SODIUM CHLORIDE 0.9% 50 ML IVPB ONE
[2020-08-23] MEDS ORDERED: PANTOPRAZOLE 80 MG in SODIUM CHLORIDE 0.9% 100 ML IV SCH
[2020-08-23] MEDS: PANTOPRAZOLE 80 MG in SODIUM CHLORIDE 0.9% 100 ML IV SCH ×2 (00:30→10:30)
--- NOTE | 2020-08-23 00:51 | NUR ---
Pt being cooperative at this time with getting iron infusion and protonix drip. Patient is on ECG monitor, continous oxygen monitoring. Patient cont' to complain of being cold, warm blanket and bear hugger placed on patient. Will con't to monitor. VSS, call light within reach
--- NOTE | 2020-08-23 03:37 | NUR ---
PT PULLED OUT HIS IV, RESTARTED 20GA RIGHT HAND AND RESTARTED MEDS ON PUMP.
--- NOTE | 2020-08-23 03:55 | NUR ---
Patient pulled out IV and disconneted all monitor equipment. Patient stated that someone else did. Placed new IV and asked patient not to remove and educated patient that he needs the medication that are running. Patient didnt answer and lin over to go back to sleep.
--- NOTE | 2020-08-23 05:45 | NUR ---
Delivery Man attempted to change patients bed and clothes d/t being wet from urine. Patient allowed jingle writer to change sheets, but refused to take pants off which are still wet. Patient con't to take off b/p cuff and pulse ox off after teaching patient several times that it needs to stay on
--- NOTE | 2020-08-23 05:48 | NUR ---
Spoke with Dr. Irving. Patient level of care to be downgraded to med/surg due to patient refusing tx.
--- NOTE | 2020-08-23 07:12 | NUR ---
PT ON GURNEY AND MONITOR. PT RESTING COMFORTABLY. PT DENIES NEEDS
--- NOTE | 2020-08-23 08:05 | NUR ---
PT POSITIONED IN BED FOR COMFORT.
[2020-08-23] MEDS ORDERED: IRON SUCROSE COMPLEX 100MG/5ML IV SCH (09:00)
--- NOTE | 2020-08-23 10:02 | NUR ---
SPOKE TO DR MAE. AGREE WITH MED ADMIT
--- NOTE | 2020-08-23 11:15 | NUR ---
REPORT FROM LEIGHTON RN WITH ASSESSMENT PATIENT ALERT AND ORIENTED/COHERENT PROTONIX INFUSING, PROVIDED WITH ADDITIONAL MEAL TRAY (ATE ALL OF BREAKFAST TRAY) PATIENT AGAIN ASKED IF HE WOULD ACCEPT BLOOD TRANSFUSION-PATIENT REPORTS "I'M JEHOVAHS WITNESS WE DONT ACCEPT BLOOD TRANSFUSIONS" VITAL STABLE AT PATIENTS BASELINE
--- NOTE | 2020-08-23 11:23 | NUR ---
PHARMACY CALLED TO RE-TIME IRON MEDICATION (SUPPOSED TO BE Q24 AND DOSE DUE NOW DESPITE ADMIN 10 HOURS AGO)
--- NOTE | 2020-08-23 12:26 | NUR ---
PROTONIX INFUSION COMPLETE PROVIDED WITH ADDITIONAL MEAL TRAY ORDERED HOSPITAL BED AND GAVE PATIENT FULL BED BATH (CLOTHES SOAKED IN URINE SPOKE TO PSYCHIATRY DYNAMICS AX TECHNICAL ARCHITECT TO SEE IF CONSULT WOULD BE AVAILABLE. PROVIDER REPORTS PATINT NOT DELUSIONAL. HE IS [employer]EHOVAHS WITNESS AND HAS NOT BENEFITED FROM PSYCHIATRY CONSULT WITH MANY PREVIOUS VISITS
--- NOTE | 2020-08-23 14:59 | NUR ---
With reassessment- no change in hemodynamic or neuro exam Dr. Armendariz called to switch protonix drip to ivp bid (patient attempting to removed iv himself "i don't like being hooked up. I'll rip it out again."
[2020-08-23] MEDS ORDERED: PANTOPRAZOLE 40 MG IV ONE (17:05)
[2020-08-23] MEDS: PANTOPRAZOLE 40 MG IV IVPush SCH (17:10)
--- NOTE | 2020-08-23 17:10 | NUR ---
patient provided with dinner no change in hemodynamic or neurologic exam Report to ruth ann hearn
[2020-08-23 22:46] VITALS: BP 101/55
[2020-08-24 00:23] VITALS: BP 110/64
[2020-08-24] MEDS ORDERED: IRON SUCROSE COMPLEX 100MG/5ML IV SCH (01:52)
[2020-08-24] MEDS: PANTOPRAZOLE 40 MG IV IVPush SCH ×2 (03:26→21:29)
[2020-08-24 06:38] LABS: BASOPHILS % (AUTO) 0 % (0-1); MEAN PLATELET VOLUME 7.1 fL (7.4-10.4)
[2020-08-24 06:40] LABS: EOSINOPHILS % (AUTO) 0 % (1-7); LYMPHOCYTES % (AUTO) 17 % (22-44); MEAN CORPUSCULAR HEMOGLOBIN 22.4 pg (27.5-34.5); MEAN CORPUSCULAR HGB CONC 30.8 g/dL (33.2-36.2); MONOCYTES % (AUTO) 8 % (2-9); NEUTROPHILS % (AUTO) 75 % (42-75); PLATELET COUNT 186 x10^3/uL (130-400); RED BLOOD COUNT 1.36 x10^6/uL (4.38-5.82); RED CELL DISTRIBUTION WIDTH 23.2 % (9.4-14.8)
[2020-08-24 07:02] LABS: MD SCAN
[2020-08-24 07:43] VITALS: BP 101/58
[2020-08-24] MEDS ORDERED: CYANOCOBALAMIN 1,000 MCG/ML, 1ML IM ONE (08:30)
[2020-08-24] MEDS: CYANOCOBALAMIN 1,000 MCG TABLET PO SCH (09:21)
[2020-08-24 13:35] VITALS: BP 105/54
[2020-08-24 20:41] VITALS: BP 103/63
[2020-08-25 02:06] VITALS: BP 110/64
[2020-08-25] MEDS: PANTOPRAZOLE 40 MG IV IVPush SCH (09:00)
[2020-08-25] MEDS: IRON SUCROSE COMPLEX 100MG/5ML IV SCH (09:00)
[2020-08-25] MEDS: CYANOCOBALAMIN 1,000 MCG TABLET PO SCH (09:00)
[2020-08-25 09:59] VITALS: BP 103/55
[2020-08-25] MEDS: ZINC SULFATE 220 MG CAPSULE PO SCH (10:00)
[2020-08-25] MEDS: MULTIVITS,STRESS FORMULA 1 TABLET PO SCH (10:40)
[2020-08-25 14:37] VITALS: BP 103/52
[2020-08-25] MEDS: ASCORBIC ACID 500 MG TABLET PO SCH (16:59)
[2020-08-25] MEDS: PANTOPRAZOLE 40MG TABLET PO SCH (19:53)
[2020-08-25 20:13] VITALS: BP 101/51
[2020-08-26] VITALS (10 sets, daily range): BP systolic 91–111; BP diastolic 45–62
[2020-08-26] MEDS: PANTOPRAZOLE 40MG TABLET PO SCH ×2 (05:54→16:30)
[2020-08-26] MEDS: ZINC SULFATE 220 MG CAPSULE PO SCH (08:44)
[2020-08-26] MEDS: CHOLECALCIFEROL 5,000u TAB PO SCH (08:44)
[2020-08-26] MEDS: CYANOCOBALAMIN 1,000 MCG TABLET PO SCH (08:44)
[2020-08-26] MEDS: ASCORBIC ACID 500 MG TABLET PO SCH ×2 (08:44→16:45)
[2020-08-26] MEDS: MULTIVITS,STRESS FORMULA 1 TABLET PO SCH (08:44)
[2020-08-26] MEDS: IRON SUCROSE COMPLEX 100MG/5ML IV SCH (08:48)
--- NOTE | 2020-08-26 19:45 | NUR ---
TIFFANIE CAMARA-Fall Risk Medications NOT present and NOT receiving anticoagulants.
[2020-08-27 01:46] VITALS: BP 98/53
[2020-08-27] MEDS: PANTOPRAZOLE 40MG TABLET PO SCH ×2 (05:00→16:30)
[2020-08-27] MEDS: ASCORBIC ACID 500 MG TABLET PO SCH ×2 (08:00→16:40)
[2020-08-27] MEDS: ZINC SULFATE 220 MG CAPSULE PO SCH (09:00)
[2020-08-27] MEDS: MULTIVITS,STRESS FORMULA 1 TABLET PO SCH (09:00)
[2020-08-27] MEDS: CYANOCOBALAMIN 1,000 MCG TABLET PO SCH (09:00)
[2020-08-27] MEDS: IRON SUCROSE COMPLEX 100MG/5ML IV SCH (09:00)
[2020-08-27] MEDS: CHOLECALCIFEROL 5,000u TAB PO SCH (09:00)
[2020-08-27 09:16] VITALS: BP 92/54
[2020-08-27 14:28] VITALS: BP 102/52
[2020-08-28 00:41] VITALS: BP 102/54
[2020-08-28] MEDS: PANTOPRAZOLE 40MG TABLET PO SCH (05:43)
[2020-08-28 06:51] VITALS: BP 84/42
[2020-08-28] MEDS: ASCORBIC ACID 500 MG TABLET PO SCH (08:00)
[2020-08-28] MEDS: CHOLECALCIFEROL 5,000u TAB PO SCH (09:00)
[2020-08-28] MEDS: ZINC SULFATE 220 MG CAPSULE PO SCH (09:00)
[2020-08-28] MEDS: MULTIVITS,STRESS FORMULA 1 TABLET PO SCH (09:00)
[2020-08-28] MEDS: CYANOCOBALAMIN 1,000 MCG TABLET PO SCH (09:00)
[2020-08-28 12:07] LABS: TROPONIN I 0.025 ng/mL (0.000-0.045)
[2020-08-28] MEDS ORDERED: EPINEPHRINE SYRINGE 0.1 MG/ML, 10ML ONE ×2 (12:36→14:11)
[2020-08-28] MEDS ORDERED: morphine SULFATE 10 MG/ML, 1ML ONE (12:54)
[2020-08-28] MEDS ORDERED: CODE BLUE RESPONSE XX ONE (14:11)
== END 2020-08-28 13:13 | disposition expired | DRG 208 ==
LOC: ED 23:40 → EDIP 08-23 00:19 → 3N 08-23 22:29 → CCU 08-28 12:48
PROVIDERS: ADMIT Family Medicine; ATTEND Internal Medicine
PROC: 5A12012 Performance of Cardiac Output, Single, Manual (ICD-10-PCS; principal; 2020-08-23)
PROC: 5A1935Z Respiratory Ventilation, Less than 24 Consecutive Hours (ICD-10-PCS; 2020-08-28)
PROC: 0BH17EZ Insertion of Endotracheal Airway into Trachea, Via Natural or Artificial Opening (ICD-10-PCS; 2020-08-28)
DX: J96.01 Acute respiratory failure with hypoxia (principal); K92.2 Gastrointestinal hemorrhage, unspecified; D50.0 Iron deficiency anemia secondary to blood loss (chronic); F20.9 Schizophrenia, unspecified; F31.9 Bipolar disorder, unspecified; I10 Essential (primary) hypertension; I46.9 Cardiac arrest, cause unspecified; Z88.8 Allergy status to other drugs, medicaments and biological substances; Z53.1 Procedure and treatment not carried out because of patient's decision for reasons of belief and group pressure; Z59.0 Homelessness; Z53.20 Procedure and treatment not carried out because of patient's decision for unspecified reasons; X31.XXXA Exposure to excessive natural cold, initial encounter; K31.89 Other diseases of stomach and duodenum; Z66 Do not resuscitate; Z91.19 Patient's noncompliance with other medical treatment and regimen
CPT/HCPCS: 36415; 71045; 83880; 84443; 84484; 85014; 85018; 85025; 85379; 92950; 93005; 94002; 99291; G0378; J1756; C9113; J3420